=== PATIENT | female | born 1995 | race Asian ===

== ENCOUNTER 2016-03-06 05:54 | Inpatient (IN) | payer OTHER ==
[2016-03-03 08:43] LABS: ABSOLUTE EOSINOPHILS # (AUTO) 0.1 10^3/uL (0.0-0.6); ABSOLUTE LYMPHOCYTES (AUTO) 2.4 10^3/uL (0.5-4.7); ABSOLUTE MONOCYTES (AUTO) 0.4 10^3/uL (0.1-1.4); ABSOLUTE NEUT (AUTO) 3.2 10^3/uL (1.7-8.2); BASOPHILS % (AUTO) 0.6 % (0-2); EOSINOPHILS % (AUTO) 1.2 % (0-6); HEMATOCRIT 42.8 % (36.0-47.0); HEMOGLOBIN 13.8 g/dL (12.0-15.5); HGB HCT DIFFERENCE -1.4; LYMPHOCYTES % (AUTO) 39.8 % (13-45); MEAN CORPUSCULAR HEMOGLOBIN 28.3 pg (27.0-33.4); MEAN CORPUSCULAR HGB CONC 32.3 g/dL (32.0-36.0); MEAN CORPUSCULAR VOLUME 88 fl (80-97); MONOCYTES % (AUTO) 6.7 % (3-13); RED BLOOD COUNT 4.87 10^6/uL (3.72-5.28); RED CELL DISTRIBUTION WIDTH 12.5 % (11.5-14.0); SEGMENTED NEUTROPHILS % (AUTO) 51.7 % (42-78); WHITE BLOOD COUNT 6.1 10^3/uL (4.0-10.5)
[2016-03-03 09:15] LABS: ANION GAP 13 (5-19); BLOOD UREA NITROGEN 10 mg/dL (7-20); CARBON DIOXIDE 25 mmol/L (22-30); CHLORIDE 104 mmol/L (98-107); CREATININE RESULT 0.61 mg/dL (0.52-1.25); GLUCOSE 83 mg/dL (75-110); POTASSIUM 4.3 mmol/L (3.6-5.0)
[2016-03-03 09:42] LABS: APPEARANCE,URINE CLEAR; BILIRUBIN,URINE NEGATIVE (NEGATIVE); GLUCOSE, URINE NEGATIVE (NEGATIVE); KETONES,URINE NEGATIVE (NEGATIVE); LEUKOCYTE ESTERASE,URINE NEGATIVE (NEGATIVE); NITRITE,URINE NEGATIVE (NEGATIVE); PROTEIN,URINE NEGATIVE (NEGATIVE); URINE SPECIFIC GRAVITY 1.025; UROBILINOGEN,URINE NEGATIVE mg/dL (<2.0)
--- NOTE | 2016-03-03 12:59 | EKG REPORT ---
SEVERITY:- NORMAL ECG - SINUS RHYTHM : Confirmed by: Meek Amos MD 03-Mar-2016 12:58:11
[~2016-03-06 05:54] MED LIST: CEFAZOLIN 2 GM/D5W RTU 2 GM/50 ML RTUPB IV PRN; LACTATED RINGERS 1000 ML IV PRN; LIDOCAINE 0.5% INJ-PF (5 MG/ML) 50 ML SDV SUBCUT PRN
[2016-03-06] MEDS ORDERED: DEXAMETHASONE SOD PHOSPHATE INJ 4 MG/1 ML VIAL ONE (07:19)
[2016-03-06] MEDS ORDERED: ONDANSETRON HCL INJ/PF 4 MG/2 ML SDV ONE (07:19)
[2016-03-06] MEDS ORDERED: SUCCINYLCHOLINE CHLORIDE INJ 200 MG/10 ML VIAL ONE (07:19)
[2016-03-06] MEDS ORDERED: LIDOCAINE 2% INJ-PF (20 MG/ML) 10 ML AMPUL ONE (07:19)
[2016-03-06] MEDS ORDERED: METOCLOPRAMIDE HCL INJ/PF 10 MG/2 ML SDV ONE (07:19)
[2016-03-06] MEDS ORDERED: THROMBIN (BOVINE) 5000 UNIT EPITAXIS KIT ONE (07:55)
[2016-03-06] MEDS ORDERED: MIDAZOLAM 2 MG/2 ML INJ ONE (10:03)
[2016-03-06] MEDS ORDERED: PROPOFOL INJ 200 MG/20 ML VIAL IV ONE (10:03)
[2016-03-06] MEDS ORDERED: FENTANYL CITRATE INJ/PF 250 MCG/5 ML AMPULE ONE (10:03)
[2016-03-06] MEDS ORDERED: TRANEXAMIC ACID INJ/PF 1,000 MG/10 ML SDV IV ONE (10:04)
[2016-03-06] MEDS ORDERED: DEXMEDETOMIDINE INJ 80 MCG/20 ML VIAL IV ONE (10:04)
[2016-03-06] MEDS ORDERED: MEPERIDINE HCL/PF INJ 25 MG/1 ML DISP.SYRIN IV PRN (11:49)
[2016-03-06] MEDS ORDERED: PROMETHAZINE HCL INJ 25 MG/1 ML VIAL IV PRN ×2 (11:49)
[2016-03-06] MEDS ORDERED: DIPHENHYDRAMINE HCL 50 MG/ML VIAL IV PRN (11:49)
[2016-03-06] MEDS ORDERED: MORPHINE SULFATE 10 MG/ML INJ IV PRN (11:49)
[2016-03-06] MEDS ORDERED: FENTANYL CITRATE INJ/PF 100 MCG/2 ML AMPUL IV PRN ×3 (11:49)
[2016-03-06] MEDS ORDERED: OXYCODONE-ACETAMINOPHEN 5-325 MG TABLET PO PRN ×2 (11:49)
[2016-03-06] MEDS ORDERED: ONDANSETRON HCL INJ/PF 4 MG/2 ML SDV IV PRN ×2 (11:49→14:34)
[2016-03-06] MEDS ORDERED: EPHEDRINE SULFATE INJ 50 MG/1 ML AMPULE ONE (12:03)
--- NOTE | 2016-03-06 13:40 | Operative Report ---
Operative Report DATE OF SURGERY: 03/06/16 PREOPERATIVE DIAGNOSIS: Active bone lesion right proximal femur POSTOPERATIVE DIAGNOSIS: Chondrosarcoma, right proximal femur OPERATION: Open biopsy. Resection of chondrosarcoma. Prophylactic internal fixation SURGEON: ALEXANDRA THOMPSON ANESTHESIA: GA TISSUE REMOVED OR ALTERED: Right proximal femoral contents to pathology ESTIMATED BLOOD LOSS: 200 PROCEDURE: With the patient in a left lateral decubitus position operative table the right looks to me is hot and hindquarter prepped and draped in sterile fashion. A longitudinal incision was made over the midportion of the right proximal femur just distal to the vastus ridge. Sharp dissection is carried incision down to the underlying bone. A TPS bur is used to fashion a cortical opening lateral proximal femur and the underlying medullary contents are removed using a curet. These are sent to pathology for frozen section diagnosis. Dr. Gupta returns a diagnosis of no high-grade lesion but a hypercellular cartilaginous lesion. A decision was made to proceed with an intralesional resection. The lateral cortex of the right proximal femur is removed using a TPS bur. The underlying medullary contents are removed using a curet. The medullary aspect. The bone was burred using a TPS bur. Subsequently, 89% phenol is used to coat the inside of the intramedullary Canal. The phenol is then removed with alcohol followed by saline. The bur was again used to remove any discolored bone is suggesting that a complete additional layer is removed. It is felt that this constitutes an adequate intralesional removal. Subsequently, the reconstruction ensues. Using a [place] 3 sliding hip screw system. A 75 mm screw was placed up into the femoral head and neck. The proximal femoral bone defect is filled with 15 mL of Hydrocet. A 5 hole sideplate for the omega-3 system is then applied. It secured with 4 distal screws. Is irrigated with normal saline. A Justen-Rodas drain is placed. The wound is then closed in layers used up to Vicryl followed by Monocryl. A sterile dressing is applied and the patient's returned to PACU in satisfactory condition.
[2016-03-06] MEDS: FENTANYL CITRATE INJ/PF 100 MCG/2 ML AMPUL ONE ×2 (14:05→14:10)
[2016-03-06] MEDS ORDERED: PROMETHAZINE HCL INJ 25 MG/1 ML VIAL ONE (14:11)
[2016-03-06] MEDS: MORPHINE SULFATE 10 MG/ML INJ IV PRN ×3 (15:57→21:11)
[2016-03-06] MEDS: CEFAZOLIN 2 GM/D5W RTU 2 GM/50 ML RTUPB IV SCH (17:53)
[2016-03-06] MEDS: RINGERS SOLUTION,LACTATED 1,000 ML IV PRN (21:03)
[2016-03-07] MEDS: CEFAZOLIN 2 GM/D5W RTU 2 GM/50 ML RTUPB IV SCH (02:20)
[2016-03-07] MEDS: MORPHINE SULFATE 10 MG/ML INJ IV PRN ×3 (05:35→13:37)
[2016-03-07] MEDS: RINGERS SOLUTION,LACTATED 1,000 ML IV PRN (05:35)
[2016-03-07 06:33] LABS: HEMATOCRIT 30.3 % (36.0-47.0); HEMOGLOBIN 10.2 g/dL (12.0-15.5); HGB HCT DIFFERENCE 0.3; MEAN CORPUSCULAR HEMOGLOBIN 29.1 pg (27.0-33.4); MEAN CORPUSCULAR HGB CONC 33.8 g/dL (32.0-36.0); MEAN CORPUSCULAR VOLUME 86 fl (80-97); RED BLOOD COUNT 3.51 10^6/uL (3.72-5.28); RED CELL DISTRIBUTION WIDTH 12.5 % (11.5-14.0); WHITE BLOOD COUNT 9.8 10^3/uL (4.0-10.5)
[2016-03-07 06:44] LABS: ANION GAP 6 (5-19); BLOOD UREA NITROGEN 6 mg/dL (7-20); CALCIUM 8.6 mg/dL (8.4-10.2); CARBON DIOXIDE 28 mmol/L (22-30); CHLORIDE 104 mmol/L (98-107); CREATININE RESULT 0.56 mg/dL (0.52-1.25); GLUCOSE 93 mg/dL (75-110); POTASSIUM 3.9 mmol/L (3.6-5.0); SODIUM 138.4 mmol/L (137-145)
--- NOTE | 2016-03-07 07:01 | PDOC PROGRESS REPORT ---
Subjective Progress Note for:: 03/07/16 Subjective:: Patient with minor complaints of pain Physical Exam Vital Signs: Temp Pulse Resp BP Pulse Ox 36.7 C 87 16 102/44 L 97 03/07/16 04:00 03/07/16 04:00 03/07/16 04:00 03/07/16 04:00 03/07/16 04:00 Intake & Output 03/05/16 03/06/16 03/07/16 06:59 06:59 06:59 Intake Total 2950 Output Total 1230 Balance 1720 Weight 49.5 kg General appearance: PRESENT: mild distress Head exam: PRESENT: normocephalic Eye exam: PRESENT: EOMI Respiratory exam: PRESENT: unlabored Cardiovascular exam: PRESENT: RRR Pulses: PRESENT: +1 pedal pulses bilateral Vascular exam: PRESENT: normal capillary refill GI/Abdominal exam: PRESENT: soft Rectal exam: PRESENT: deferred Extremities exam: PRESENT: other - Right lower extremity dressing dry and intact. Justen-Rodas drain productive. Leg lengths are equal. Distal neurovascular examinations intact. Neurological exam: PRESENT: alert, awake, oriented to person, oriented to place , oriented to time, oriented to situation, CN II-XII grossly intact. ABSENT: motor sensory deficit Psychiatric exam: PRESENT: appropriate affect, normal mood. ABSENT: homicidal ideation, suicidal ideation Results Laboratory Results: 03/07/16 06:00 03/07/16 06:00 03/07/16 03/07/16 06:00 06:00 WBC 9.8 RBC 3.51 L Hgb 10.2 L Hct 30.3 L MCV 86 MCH 29.1 MCHC 33.8 RDW 12.5 Plt Count 141 L Sodium 138.4 Potassium 3.9 Chloride 104 Carbon Dioxide 28 Anion Gap 6 BUN 6 L Creatinine 0.56 Est GFR ( Amer) > 60 Est GFR (Non-Af Amer) > 60 Glucose 93 Calcium 8.6 Impressions: Chest X-Ray 03/03/16 07:59 IMPRESSION: NO SIGNIFICANT RADIOGRAPHIC FINDING IN THE CHEST. Chest CT 03/06/16 00:00 IMPRESSION: Bandlike atelectasis at the left lung base. Femur X-Ray 03/06/16 00:00 IMPRESSION: Intra procedural imaging and fluoro Fluoroscopy 03/06/16 00:00 IMPRESSION: Intra procedural imaging and fluoro Status: Imported from PACS Assessment & Plan - Diagnosis (1) Chondrosarcoma of right femur Is this a current diagnosis for this admission?: YesPlan: 20-year-old female status post intralesional resection of a right femoral chondrosarcoma with an uneventful postoperative course. Should be mobilized with physical therapy and weightbearing as tolerated basis. Justen Rodas drain can be emptied every 8 hours. Anticipate discharge home tomorrow with home health nursing, home health physical therapy, we'll Walker, bedside commode. - Time Time Spent with patient: 15-24 minutes Anticipated discharge: Home with Homehealth Within: within 24 hours
[2016-03-07] MEDS: OXYCODONE HCL IR 5 MG TABLET PO PRN ×3 (07:55→22:06)
[2016-03-07] MEDS ORDERED: ETONOGESTREL 68 MG SQ SCH (10:00)
[2016-03-08] MEDS: OXYCODONE HCL IR 5 MG TABLET PO PRN ×3 (00:48→21:31)
[2016-03-08] MEDS ORDERED: OXYCODONE HCL IR 5 MG TABLET PO ONE (01:00)
[2016-03-08] MEDS: MORPHINE SULFATE 10 MG/ML INJ IV PRN ×3 (03:01→07:43)
[2016-03-08] MEDS ORDERED: OXYCODONE HCL IR 5 MG TABLET PO SCH (06:00)
[2016-03-08] MEDS: IBUPROFEN 800 MG in NORMAL SALINE 250 ML IV SCH ×2 (09:51→18:01)
[2016-03-09] MEDS: IBUPROFEN 800 MG in NORMAL SALINE 250 ML IV SCH ×2 (02:37→12:06)
[2016-03-09] MEDS: OXYCODONE HCL IR 5 MG TABLET PO PRN (07:26)
--- NOTE | 2016-03-09 07:30 | PDOC DISCHARGE SUMMARY ---
General - Admit/Disc Date/PCP Admission Date/Primary Care Provider: 03/06/16 09:10 CHICHI GOMEZ Discharge Date: 03/09/16 - Discharge Diagnosis (1) Chondrosarcoma of right femur Is this a current diagnosis for this admission?: Yes - Additional Information Discharge Activity: Balance Activity w/Rest Home Medications: Etonogestrel [Nexplanon] 68 mg SQ DAILY 03/06/16 Oxycodone HCl [Oxy-Ir 5 mg Tablet] 10 mg PO Q6HP PRN #0 tablet 03/09/16 History of Present Illness History of Present Illness: Patient with a three-year prodromal history of right thigh pain and functional disability Hospital Course Hospital Course: Patient submitted through the operating room where she undergoes an intralesional resection of right proximal femoral chondrosarcoma with prophylactic internal fixation and bone grafting. Go therapy for ambulation. She makes progress this regard. Analgesia is problematic. Drain production continues with serosanguineous drainage Physical Exam Vital Signs: Temp Pulse Resp BP Pulse Ox 36.6 C 68 16 105/40 L 99 03/09/16 00:00 03/09/16 00:00 03/09/16 00:00 03/09/16 00:00 03/09/16 00:00 Intake & Output 03/08/16 03/09/16 03/10/16 06:59 06:59 06:59 Intake Total 1811 1814 Output Total 115 Balance 1696 1814 Weight 51.1 kg 48.8 kg General appearance: PRESENT: no acute distress Head exam: PRESENT: normocephalic Eye exam: PRESENT: EOMI Respiratory exam: PRESENT: unlabored Cardiovascular exam: PRESENT: RRR Pulses: PRESENT: +1 pedal pulses bilateral GI/Abdominal exam: PRESENT: soft Rectal exam: PRESENT: deferred Extremities exam: PRESENT: other - Drain is in place. Serosanguineous drainage in the bulb. Dressing is changed. Wound is well approximated clean dry and intact. Distal neurovascular examinations intact. Neurological exam: PRESENT: alert, awake, oriented to person, oriented to place , oriented to time, oriented to situation, CN II-XII grossly intact. ABSENT: motor sensory deficit Results Laboratory Results: 03/07/16 06:00 03/07/16 06:00 Impressions: Chest X-Ray 03/03/16 07:59 IMPRESSION: NO SIGNIFICANT RADIOGRAPHIC FINDING IN THE CHEST. Chest CT 03/06/16 00:00 IMPRESSION: Bandlike atelectasis at the left lung base. Femur X-Ray 03/06/16 00:00 IMPRESSION: Intra procedural imaging and fluoro Fluoroscopy 03/06/16 00:00 IMPRESSION: Intra procedural imaging and fluoro Status: Imported from PACS Qualifiers VTE patient discharged on overlapping Therapy?: No Reason(s) for not prescribing Overlap Therapy:: Not indicated Plan Discharge Plan: Patient will be discharged home with home health nursing, home health physical therapy, crutches. She'll empty the Justen Rodas bulb every 8 hours and record the volume. She'll return to see Dr. Mukherjee in the [facility] for surgery on Sunday. Time Spent: Less than 30 Minutes
[2016-03-09 12:35] VITALS: BP 105/40
== END 2016-03-09 13:27 | disposition home health service (06) | DRG 482 ==
LOC: INOR 09:10 → 4S 14:54
PROVIDERS: ADMIT Orthopaedic Surgery; ATTEND Orthopaedic Surgery
PROC: 0QU Lower Bones, Supplement (ICD-10-PCS; 2016-03-06)
PROC: 0QH636Z Insertion of Intramedullary Internal Fixation Device into Right Upper Femur, Percutaneous Approach (ICD-10-PCS; 2016-03-06)
PROC: 0QB63ZZ Excision of Right Upper Femur, Percutaneous Approach (ICD-10-PCS; principal; 2016-03-06 11:15)
DX: C40.21 Malignant neoplasm of long bones of right lower limb (principal); M25.561 Pain in right knee
CPT/HCPCS: 01210; 36415; 71020; 71250; 80048; 81001; 81025; 85025; 85027; 88307; 88311; 93005; 93010; J0330; J0690; J1100; J1741; J2250; J2270; J2405; J2550; J2704; J2765; J3010; J3490; J7050; J7120; L1830